=== PATIENT | female | born 1985 | race Caucasian/White ===

== ENCOUNTER → 2017-05-18 | Outpatient (REF) | payer OTHER | LOC: M SFHCLERA 12:21 | DX: J02.9 Acute pharyngitis, unspecified (principal) ==

== ENCOUNTER 2019-01-17 13:38 | Day surgery (SDC) | payer OTHER ==
[~2019-01-17] VITALS: Ht 172.7 cm; Wt 64.4 kg
[~2019-01-17 13:38] MED LIST: LIDOCAINE 1% MDV 20ML VIAL SQ PRN; LR 1,000 ML IV ONE; MOTR200T44 PO; PRE-TAB3 PO; TYLE500T78 PO; birth control PO
[2019-01-17] MEDS ORDERED: LIDOCAINE W/EPINEPHRINE 1% 20ML VIAL As Ordered ONE (15:05)
[2019-01-17] MEDS ORDERED: BUPIVACAINE HCL 0.25% 30 ML VIAL As Ordered ONE (15:25)
[2019-01-17] MEDS ORDERED: KETOROLAC 60 MG/2 ML VIAL (J1885) As Ordered ONE (15:40)
[2019-01-17] MEDS ORDERED: ONDANSETRON 4MG/2ML VIAL (J2405) As Ordered ONE (15:40)
[2019-01-17] MEDS ORDERED: dexameTHASONE 4 MG/ML 1ML VIAL (J1100) As Ordered ONE (15:40)
[2019-01-17] MEDS ORDERED: fentaNYL 100 MCG/2 ML INJECTION (J3010) As Ordered ONE (15:40)
[2019-01-17] MEDS ORDERED: LIDOCAINE 2% INJ 100 MG/5 ML SDV (FOR ANES.) As Ordered ONE (15:40)
[2019-01-17] MEDS ORDERED: PROPOFOL 200 MG/20 ML VIAL As Ordered ONE ×2 (15:40→16:05)
[2019-01-17] MEDS ORDERED: CHLOROPROCAINE 2 % INJ PRES.FREE 20 ML VIAL (J2400) As Ordered ONE (15:40)
[2019-01-17] MEDS ORDERED: MIDAZOLAM INJ 2 MG/2 ML VIAL (J2250) As Ordered ONE (15:40)
[2019-01-17] MEDS ORDERED: diphenhydrAMINE INJ 50MG/ML VIAL (J1200) As Ordered ONE (16:08)
[2019-01-17] MEDS ORDERED: ONDANSETRON 4MG/2ML VIAL (J2405) IV PRN (17:00)
[2019-01-17] MEDS ORDERED: fentaNYL 100 MCG/2 ML INJECTION (J3010) IV PRN (17:00)
[2019-01-17] MEDS ORDERED: LR 1,000 ML IV SCH (17:00)
[2019-01-17] MEDS ORDERED: NORCO, ANEXSIA 5/325MG TABLET (HYDROcodone/ACETAMINOPHEN) PO PRN (17:30)
[2019-01-17] MEDS ORDERED: IBUPROFEN 400 MG TAB PO PRN (17:30)
[2019-01-17] MEDS ORDERED: ACETAMINOPHEN TAB 650MG DOSE (2X325MG) PO PRN (17:30)
[2019-01-17 17:50] VITALS: BP 122/77
--- NOTE | 2019-01-19 13:25 | RO ---
DATE OF PROCEDURE: 01/17/2019 PREOPERATIVE DIAGNOSIS: Perianal abscess/fistula. POSTOPERATIVE DIAGNOSES: 1. Perianal abscess/fistula. 2. Small posterior midline fissure. 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 SURGEON: Severino Coyle MD JACK [employer]SEM[employer]ER: ANESTHESIA: Spinal. INDICATIONS FOR THE PROCEDURE: The patient is a 33-year-old woman with a several-month history of a recurring area of tenderness at the left anterior perianal area. On her most recent visit, she was noted to have a small raised faintly pink area suggestive of an abscess in this area. She is now admitted to undergo incision and drainage and possible debridement. OPERATIVE PROCEDURE: The patient had a subarachnoid block anesthetic placed. She was placed into a prone position on the operating table. She was moved into a jackknife position, as well. The buttocks were spread with tape and the perineum prepped and draped. Inspection revealed a roughly 1.5-2 cm slightly raised faintly discolored area in a left anterior position, perhaps 3 cm from the area of the anal verge. She had a very small approximately 6-mm long posterior midline fissure at the anal verge. Digital examination showed no other anorectal abnormalities. Palpation of the raised area in the left anterior position revealed an indurated tract extending from this point to the anterior midline of the anus. A pinpoint opening was identified with a small amount of a purulent-appearing material draining. Using the electrocautery, I made a small incision in the area of induration between the small raised area and the anterior midline. A chronic abscess filled with debris and chronic granulation was entered. A probe was inserted through this area and advanced out the anterior midline at the area of the pinhole opening. The cautery was then used to cut down on this probe through the length of the chronic abscess/fistula. The incision was then extended further to get to the raised area, which was the lateral most extent at the abscess. A small amount of skin was debrided where it was undermined and overhanging. A curette was used to debride all of the granulation tissue and debris from within the subcutaneous pocket. The pocket extended perhaps 6-8 mm anteriorly from the anterior midline of the anus but did not track any closer to the vagina. Once the area had been completely debrided, 0.25% Marcaine was infiltrated surrounding the area. Hemostasis was ensured with the cautery. I had obtained aerobic and anaerobic cultures at the time of the incision and debridement. The wound was filled with saline-moistened gauze, and a bandage was applied. She tolerated the procedure well without apparent complication. The resulting wound was approximately 5 cm in length x 2 cm in width. She was rolled to a supine position on the stretcher and taken to the recovery room in stable condition. JENNIFER
== END 2019-01-17 18:00 | disposition home or self-care (01) ==
LOC: M SDC 13:38
PROVIDERS: ATTEND Surgery
DX: K61.0 Anal abscess (principal); Z88.2 Allergy status to sulfonamides
CPT/HCPCS: 46060; 87070; 87075; 87076; 87205; 88304; J1100; J1200; J1885; J2250; J2400; J2405; J3010

== ENCOUNTER → 2019-06-16 | Outpatient (REF) | payer BC ==
[~2019-06-16] MED LIST changes: -LIDOCAINE 1% MDV 20ML VIAL SQ PRN; -LR 1,000 ML IV ONE
[2019-06-16 13:26] LABS: HCG, SERUM QUALITATIVE NEGATIVE (NEGATIVE)
== END ==
LOC: M LAB REF 12:31
PROVIDERS: ATTEND Registered Nurse
DX: N93.9 Abnormal uterine and vaginal bleeding, unspecified (principal)

== ENCOUNTER → 2019-12-29 | Outpatient (REF) | payer OTHER ==
[2019-12-29 17:46] LABS: FOLATE 17.8 NG/ML
[2020-01-03 11:09] LABS: VITAMIN B1 LEVEL WHOLE BLOOD 137.4 nmol/L (66.5-200.0); VITAMIN B6,PYRIDOXAL PHOSPHATE 16.2 ug/L (2.0-32.8); VITAMIN E(ALPHA TOCOPHEROL) 10.5 mg/L (5.9-19.4)
== END ==
LOC: M LAB REF 16:57
PROVIDERS: ATTEND Registered Nurse
DX: R42 Dizziness and giddiness (principal); R26.81 Unsteadiness on feet

== ENCOUNTER → 2020-02-06 | Outpatient (REF) | payer OTHER | LOC: M LAB REF 16:36 | PROVIDERS: ATTEND Registered Nurse | DX: Z83.2 Family history of diseases of the blood and blood-forming organs and certain disorders involving the immune mechanism (principal) ==

== ENCOUNTER → 2020-02-19 | Outpatient (REF) | payer OTHER ==
[2020-02-19 16:33] LABS: HCG, SERUM QUALITATIVE NEGATIVE (NEGATIVE)
== END ==
LOC: M LAB REF 16:16
PROVIDERS: ATTEND Registered Nurse
DX: N91.2 Amenorrhea, unspecified (principal)

== ENCOUNTER → 2020-02-26 | Outpatient (CLI) | payer OTHER ==
[2020-02-26 18:42] LABS: HCG, SERUM QUALITATIVE NEGATIVE (NEGATIVE)
[2020-02-26 18:45] LABS: HCG, SERUM QUANTITATIVE < 1.0 MIU/ML
== END ==
LOC: M LAB 15:49
PROVIDERS: ATTEND Nurse Practitioner Adult Health
DX: N92.6 Irregular menstruation, unspecified (principal)

== ENCOUNTER → 2020-11-25 | Outpatient (REF) | payer OTHER ==
[2020-11-25 17:09] LABS: HCG, SERUM QUALITATIVE NEGATIVE (NEGATIVE)
== END ==
LOC: M LAB REF 16:33
PROVIDERS: ATTEND Registered Nurse
DX: N91.2 Amenorrhea, unspecified (principal)

== ENCOUNTER → 2020-12-16 | Outpatient (CLI) | payer OTHER | LOC: M PLALAB 12:00 | PROVIDERS: ATTEND Advanced Practice Midwife | DX: N93.9 Abnormal uterine and vaginal bleeding, unspecified (principal) ==

== ENCOUNTER → 2022-01-15 | Outpatient (REF) | payer OTHER | LOC: M LAB REF 16:39 | PROVIDERS: ATTEND Registered Nurse | DX: R43.2 Parageusia (principal) ==

== ENCOUNTER → 2023-12-23 | Outpatient (REF) | payer OTHER | LOC: M LAB REF 12:06 | PROVIDERS: ATTEND Physician Assistant | DX: B34.9 Viral infection, unspecified (principal) ==